=== PATIENT | male | born 1990 | race Caucasian/White ===

== ENCOUNTER 2020-03-11 10:49 | Emergency (ER) | payer SELFPAY ==
[2020-03-11] VITALS (8 sets, daily range): BP systolic 135–168; BP diastolic 75–103; PULSE 107–121; RESP 15–18; TEMP 36.9; O2SAT 96–99; BMI 25.8
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
[2020-03-11 11:15] LABS: Basophils # 0.1 10^3/uL (0.0-0.1); Basophils % 0.9 %; Eosinophils # 0.1 10^3/uL (0.0-0.8); Eosinophils % 0.7 %; Hematocrit 43.8 % (42.0-52.0); Hemoglobin 14.4 g/dL (11.7-16.6); Lymphocytes # 3.1 10^3/uL (0.8-4.8); Mean Corpuscular HGB Conc 32.9 g/dL (30.0-36.0); Mean Corpuscular Hemoglobin 30.4 pg (28.0-34.0); Mean Corpuscular Volume 92.6 fL (80-94); Mean Platelet Volume 10.9 fL (7.4-10.4); Monocytes # 0.6 10^3/uL (0.2-0.9); Monocytes % 6.6 %; Neutrophils # 5.52 10^3/uL (1.8-7.7); Neutrophils % 58.2 %; Nucleated Red Blood Cells % 0 %; Platelet Count 239 10^3/cmm (130-400); Red Blood Count 4.73 10^6/uL (4.1-5.3); Red Cell Distribution Width 12.1 % (12.1-15.1); White Blood Count 9.5 10^3/uL (4.0-10.0)
[2020-03-11 11:31] LABS: Alanine Aminotransferase 40 U/L (0-41); Albumin Level 5.2 g/dL (3.5-5.2); Alcohol Level 199 mg/dL (0-10); Alkaline Phosphatase 78 IU/L (40-130); Anion Gap 20.5 (5-19); Aspartate Amino Transferase 53 U/L (0-40); Blood Urea Nitrogen 8 mg/dL (6-20); Calcium 9.5 mg/dL (8.5-10.5); Carbon Dioxide 22 mmol/L (22-29); Chloride 100 mmol/L (98-107); Globulin 3.2 g/dL (1.3-4.6); Glucose 112 mg/dL (65-115); Lipase 33 U/L (13-60); Osmolality Calculated 287 mOsm/kg (285-295); Potassium 3.5 mmol/L (3.5-5.1); Sodium 139 mmol/L (136-145); Total Protein 8.4 g/dL (6.6-8.7)
[2020-03-11] MEDS: morphine 4 mg/mL SDV 1 mL 2 MG IVP ×3 (11:31→14:11)
[2020-03-11] MEDS: ondansetron 2 mg/ML SDV 2 mL 4 MG IVP (11:31)
[2020-03-11 11:52] LABS: Add Urine Microscopic? YES; Bilirubin Urine Neg (Negative); Blood Urine 2+ (Negative); Glucose Urine UA Norm (Normal); Ketones Urine Negative (Negative); Leukocyte Esterase Urine Negative (Negative); Nitrate Urine Negative (Negative); Protein Urine Neg (Negative); RBC Urine RARE /hpf (0-2); Specific Gravity, Urine 1.005 (1.005-1.030); Squamous Epithelial Cell Urine 0-4 /hpf (0-5); Urine Appearance Clear (CLEAR); Urine Color Yellow (Yellow); Urobilinogen Urine Norm (Negative); pH Urine 5 (5-7)
[2020-03-11 11:53] LABS: Add Urine Culture? No; Bacteria Urine TRACE /hpf; Mucus Urine TRACE /hpf
[2020-03-11] MEDS: iohexol 300 mg/mL 100 mL Btl IV (12:04)
[2020-03-11] MEDS: sodium chloride 0.9% 1,000 ML 999 ML IV (14:11)
[2020-03-11 14:16] LABS: Basophils # 0.1 10^3/uL (0.0-0.1); Basophils % 0.3 %; Hematocrit 41.2 % (42.0-52.0); Hemoglobin 13.8 g/dL (11.7-16.6); Lymphocytes # 1.5 10^3/uL (0.8-4.8); Lymphocytes % 10.3 %; Mean Corpuscular HGB Conc 33.5 g/dL (30.0-36.0); Mean Corpuscular Hemoglobin 30.8 pg (28.0-34.0); Mean Platelet Volume 10.2 fL (7.4-10.4); Monocytes % 6.8 %; Neutrophils # 11.99 10^3/uL (1.8-7.7); Neutrophils % 82.2 %; Nucleated Red Blood Cells % 0 %; Platelet Count 212 10^3/cmm (130-400); Red Blood Count 4.48 10^6/uL (4.1-5.3); Red Cell Distribution Width 12.3 % (12.1-15.1); White Blood Count 14.6 10^3/uL (4.0-10.0)
== END 2020-03-11 14:33 ==
PROVIDERS: Emergency Provider Family Medicine
DX: S01.81XA Laceration without foreign body of other part of head, initial encounter (principal); S01.112A Laceration without foreign body of left eyelid and periocular area, initial encounter; S12.500A Unspecified displaced fracture of sixth cervical vertebra, initial encounter for closed fracture; V89.2XXA Person injured in unspecified motor-vehicle accident, traffic, initial encounter
CPT/HCPCS: 12015; 12345; 70450; 71260; 72125; 74177; 80053; 80307; 81001; 83690; 85025; 96374; 96375; 96376; 99283; 99285; J2270; J2405; J7030; Q9967